=== PATIENT | male | born 1965 | race Caucasian/White ===

== ENCOUNTER 2019-07-30 11:03 | Inpatient (IN) | payer MEDICAID, OTHER ==
[~2019-07-30] VITALS: Ht 172.7 cm; Wt 81.2 kg
[~2019-07-30 11:03] MED LIST: CHOL100018 PO; MIRT-89 PO; OLAN10TA3 PO
[2019-07-30 12:00] LABS: EOSINOPHILS % (AUTO) 0.4 % (1.0-6.0); HEMATOCRIT 48.9 % (41-53); HEMOGLOBIN 16.8 g/dL (13.5-17.5); LYMPHOCYTES # (AUTO) 1.5 K/uL (1.0-4.8); LYMPHOCYTES % (AUTO) 26.2 % (22.0-44.0); MEAN CORPUSCULAR HEMOGLOBIN 32.3 pg (26.0-34.0); MEAN CORPUSCULAR HGB CONC 34.3 G/dL (31.0-37.0); MEAN CORPUSCULAR VOLUME 94 fL (80-100); MONOCYTES # (AUTO) 0.5 K/uL (0.1-1.0); MONOCYTES % (AUTO) 8.4 % (2.0-9.0); NEUTROPHILS # (AUTO) 3.8 K/uL (1.8-7.7); PLATELET COUNT (AUTO) 274 K/uL (150-450); RED BLOOD CELL COUNT(AUTO) 5.19 MIL/uL (4.50-5.90); RED CELL DISTRIBUTION WIDTH 11.9 % (11.5-14.5)
[2019-07-30 12:04] LABS: APPEARANCE,URINE CLEAR (CLEAR); GLUCOSE, URINE (UA) NEGATIVE (NEGATIVE); KETONES,URINE NEGATIVE (NEGATIVE); LEUKOCYTE ESTERASE ,URINE NEGATIVE (NEGATIVE); NITRATE,URINE NEGATIVE (NEGATIVE); OCCULT BLOOD,URINE NEGATIVE (NEGATIVE); PROTEIN,URINE NEGATIVE (NEGATIVE)
[2019-07-30 12:06] LABS: BILIRUBIN,URINE PRELIM. POSITIVE (NEGATIVE)
[2019-07-30 12:08] LABS: BACTERIA,URINE None Seen /HPF (None Seen); RBC,URINE 0-2 /HPF (0-2); WBC,URINE None Seen /HPF (0-5)
[2019-07-30 12:12] LABS: AMPHET/METH SCREEN,URINE NEGATIVE (NEGATIVE); BARBITURATE SCREEN, URINE NEGATIVE (NEGATIVE); BENZODIAZEPINES SCREEN,URINE NEGATIVE (NEGATIVE); CANNABINOID SCREEN,URINE NEGATIVE (NEGATIVE); COCAINE SCREEN,URINE NEGATIVE (NEGATIVE); METHADONE SCREEN, URINE NEGATIVE (NEGATIVE); OPIATE SCREEN,URINE NEGATIVE (NEGATIVE)
[2019-07-30 12:12] LABS: ANION GAP 11 mmol/L (8-16); CALCIUM, TOTAL 9.1 mg/dL (8.8-10.5); CARBON DIOXIDE 25 mmol/L (22-29); CHLORIDE 107 mmol/L (98-107); CREATININE 0.88 mg/dL (0.60-1.30); GLOMERULAR FILTR. RATE CALC > 60 mL/min (>60); GLUCOSE,RANDOM 97 mg/dL (70-110); POTASSIUM 4.4 mmol/L (3.5-5.1); SODIUM SERUM 143 mmol/L (136-145); UREA NITROGEN, BLOOD 7 mg/dL (7-18)
[2019-07-30 12:13] LABS: PHENCYCLIDINE SCREEN,URINE NEGATIVE (NEGATIVE)
[2019-07-30 12:20] LABS: ALANINE AMINOTRANSFERASE 38 U/L (12-78); ALBUMIN 3.8 g/dL (3.4-5.0); ALKALINE PHOSPHATASE 49 U/L (46-116); ASPARTATE AMINOTRANSFERASE 30 U/L (15-37); BILIRUBIN,TOTAL 1.1 mg/dL (0.1-1.0); LIPASE 101 U/L (73-393); TOTAL PROTEIN, SERUM 7.2 g/dL (6.4-8.2)
[2019-07-30] MEDS ORDERED: SODIUM PHOS/SODIUM BIPHOS 133 ML ENEMA PR ONE (12:45)
[2019-07-30] MEDS ORDERED: LORazepam 2 MG TABLET PO ONE (13:15)
[2019-07-30 17:00] VITALS: BP 112/87
[2019-07-31] MEDS ORDERED: LOPERAMIDE HCL 2 MG CAPSULE PO PRN (07:30)
[2019-07-31] MEDS ORDERED: DOCUSATE SODIUM 100 MG CAPSULE PO PRN (07:30)
[2019-07-31] MEDS ORDERED: CloNIDine HCL 0.1 MG TABLET PO PRN (07:30)
[2019-07-31] MEDS ORDERED: ALBUTEROL SULFATE HFA 90 MCG/PUFF 8 GM INHALER IH PRN (07:30)
[2019-07-31] MEDS ORDERED: GuaiFENesin/D-METHORPHAN [SUGAR-FREE] 200-20MG/10 ML SYRUP UDCUP PO PRN (07:30)
[2019-07-31] MEDS ORDERED: NICOTINE 14 MG/24 HOUR PATCH TD PRN (07:30)
[2019-07-31] MEDS ORDERED: ONDANSETRON HCL 4 MG TABLET PO PRN (07:30)
[2019-07-31] MEDS ORDERED: ACETAMINOPHEN 325 MG TABLET PO PRN (07:30)
[2019-07-31] MEDS ORDERED: PETROLATUM,WHITE 28 GM JELLY TP PRN (07:30)
[2019-07-31] MEDS: MAGNESIUM HYDROXIDE SUSPENSION 30 ML UDCUP PO PRN (09:50)
[2019-07-31] MEDS: ARIPiprazole 10 MG TABLET PO SCH (10:53)
[2019-07-31] MEDS ORDERED: BISACODYL 10 MG RECTAL RECTAL SUPPOSITORY PR PRN (11:15)
[2019-07-31] MEDS: BISACODYL 10 MG RECTAL RECTAL SUPPOSITORY PR SCH ×2 (12:23→17:00)
[2019-07-31 12:39] VITALS: BP 124/106
[2019-07-31 18:48] VITALS: BP 105/66
[2019-08-01 08:00] VITALS: BP 128/75
[2019-08-01] MEDS: BISACODYL 10 MG RECTAL RECTAL SUPPOSITORY PR SCH ×2 (09:00→16:19)
[2019-08-01] MEDS: ARIPiprazole 10 MG TABLET PO SCH (09:15)
[2019-08-01 11:01] VITALS: BP 126/72
[2019-08-01] MEDS: LORazepam 2 MG TABLET PO PRN (12:06)
[2019-08-01 17:40] VITALS: BP 105/57
[2019-08-02] MEDS: ARIPiprazole 10 MG TABLET PO SCH (08:56)
[2019-08-02] MEDS: BISACODYL 10 MG RECTAL RECTAL SUPPOSITORY PR SCH ×2 (08:56→16:48)
[2019-08-02 09:12] VITALS: BP 138/71
[2019-08-02 13:14] VITALS: BP 112/76
[2019-08-02] MEDS: ACETAMINOPHEN 325 MG TABLET PO PRN (13:14)
[2019-08-02] MEDS: MAG HYDROX/AL HYDROX/SIMETH ES 30 ML SUSPENSION UDCUP PO PRN (15:49)
[2019-08-02 16:52] VITALS: BP 114/88
[2019-08-03 08:00] VITALS: BP 129/77
[2019-08-03] MEDS: ARIPiprazole 10 MG TABLET PO SCH (08:41)
[2019-08-03] MEDS: BISACODYL 10 MG RECTAL RECTAL SUPPOSITORY PR SCH ×2 (08:54→17:00)
[2019-08-03] MEDS: MAGNESIUM HYDROXIDE SUSPENSION 30 ML UDCUP PO PRN (10:05)
[2019-08-03] MEDS: ACETAMINOPHEN 325 MG TABLET PO PRN ×2 (11:25→19:28)
[2019-08-03 16:55] VITALS: BP 115/73
[2019-08-03] MEDS: MAG HYDROX/AL HYDROX/SIMETH ES 30 ML SUSPENSION UDCUP PO PRN (17:09)
[2019-08-04 08:00] VITALS: BP 115/67
[2019-08-04] MEDS: LORazepam 2 MG TABLET PO PRN (08:29)
[2019-08-04] MEDS: ARIPiprazole 10 MG TABLET PO SCH (08:29)
[2019-08-04] MEDS: BISACODYL 10 MG RECTAL RECTAL SUPPOSITORY PR SCH ×2 (08:30→17:59)
[2019-08-04 17:13] VITALS: BP 100/53
[2019-08-05] MEDS: BISACODYL 10 MG RECTAL RECTAL SUPPOSITORY PR SCH ×2 (09:00→17:00)
[2019-08-05] MEDS: ARIPiprazole 15 MG TABLET PO SCH (09:21)
[2019-08-05 09:24] VITALS: BP 120/79
[2019-08-05] MEDS: ACETAMINOPHEN 325 MG TABLET PO PRN (09:24)
[2019-08-06] MEDS: LORazepam 2 MG TABLET PO PRN (08:26)
[2019-08-06] MEDS: ARIPiprazole 15 MG TABLET PO SCH (08:26)
[2019-08-06] MEDS: BISACODYL 10 MG RECTAL RECTAL SUPPOSITORY PR SCH ×2 (08:27→16:46)
[2019-08-06 10:03] VITALS: BP 125/76
[2019-08-06] MEDS: HALOPERIDOL 5 MG TABLET PO PRN (10:24)
[2019-08-06 16:45] VITALS: BP 106/67
[2019-08-07] MEDS: LORazepam 2 MG TABLET PO PRN (07:56)
[2019-08-07] MEDS: BISACODYL 10 MG RECTAL RECTAL SUPPOSITORY PR SCH (09:00)
[2019-08-07] MEDS: ARIPiprazole 15 MG TABLET PO SCH (09:13)
[2019-08-07 13:00] VITALS: BP 118/90
[2019-08-07 16:02] VITALS: BP 126/63
[2019-08-07 16:22] LABS: GLUCOMETER DEV NAME(LOC) 3E.C; GLUCOSE,POINT OF CARE 77 MG/DL (70-110)
[2019-08-07] MEDS: DOCUSATE SODIUM 100 MG CAPSULE PO SCH (16:36)
[2019-08-07] MEDS: IBUPROFEN 400 MG TABLET PO PRN (18:31)
[2019-08-07 20:00] VITALS: BP 102/60
[2019-08-07 20:24] VITALS: BP 126/63
[2019-08-07 21:36] VITALS: BP 101/64
[2019-08-08] MEDS: IBUPROFEN 400 MG TABLET PO PRN ×2 (08:10→17:58)
[2019-08-08] MEDS: ARIPiprazole 10 MG TABLET PO SCH (08:12)
[2019-08-08] MEDS: DOCUSATE SODIUM 100 MG CAPSULE PO SCH ×2 (08:14→16:34)
[2019-08-08 08:30] VITALS: BP 132/79
[2019-08-08] MEDS: LORazepam 2 MG TABLET PO PRN (08:34)
[2019-08-08] MEDS: ACETAMINOPHEN 325 MG TABLET PO PRN (08:37)
[2019-08-08] MEDS ORDERED: ARIPiprazole 15 MG TABLET PO SCH (09:00)
[2019-08-08 17:19] VITALS: BP 107/69
[2019-08-08 17:58] VITALS: BP 112/62
[2019-08-09 00:42] VITALS: BP 117/72
[2019-08-09 08:30] VITALS: BP 142/87
[2019-08-09] MEDS: LORazepam 2 MG TABLET PO PRN (08:35)
[2019-08-09] MEDS: ACETAMINOPHEN 325 MG TABLET PO PRN (08:35)
[2019-08-09] MEDS: DOCUSATE SODIUM 100 MG CAPSULE PO SCH ×2 (08:35→16:05)
[2019-08-09] MEDS: ARIPiprazole 10 MG TABLET PO SCH (08:36)
[2019-08-09] MEDS: TraMADol HCL 50 MG TABLET PO PRN ×2 (11:33→21:16)
[2019-08-09 16:10] VITALS: BP 120/70
[2019-08-09 21:11] VITALS: BP 124/72
[2019-08-10] MEDS: IBUPROFEN 400 MG TABLET PO PRN (05:07)
[2019-08-10 08:45] VITALS: BP 120/85
[2019-08-10] MEDS: ARIPiprazole 10 MG TABLET PO SCH (09:07)
[2019-08-10] MEDS: DOCUSATE SODIUM 100 MG CAPSULE PO SCH ×2 (09:07→17:07)
[2019-08-10] MEDS: TraMADol HCL 50 MG TABLET PO PRN (09:14)
[2019-08-10] MEDS: SERTRALINE HCL 50 MG TABLET PO SCH ×3 (13:30→13:43)
[2019-08-10 16:12] VITALS: BP 122/81
[2019-08-11 01:50] VITALS: BP 141/71
[2019-08-11] MEDS: TraMADol HCL 50 MG TABLET PO PRN ×2 (10:19→19:16)
[2019-08-11] MEDS: HALOPERIDOL 5 MG TABLET PO PRN ×2 (10:19→10:20)
[2019-08-11] MEDS: ARIPiprazole 10 MG TABLET PO SCH (10:19)
[2019-08-11] MEDS: SERTRALINE HCL 50 MG TABLET PO SCH (10:19)
[2019-08-11] MEDS: LORazepam 2 MG TABLET PO PRN (10:20)
[2019-08-11] MEDS: DOCUSATE SODIUM 100 MG CAPSULE PO SCH ×2 (10:20→16:37)
[2019-08-11 12:32] VITALS: BP 120/81
[2019-08-11 19:16] VITALS: BP 124/78
[2019-08-12] MEDS: DOCUSATE SODIUM 100 MG CAPSULE PO SCH ×2 (08:41→16:34)
[2019-08-12] MEDS: ARIPiprazole 10 MG TABLET PO SCH (08:41)
[2019-08-12] MEDS: SERTRALINE HCL 50 MG TABLET PO SCH ×2 (08:41→08:56)
[2019-08-12 09:35] VITALS: BP 154/85
[2019-08-12 10:37] VITALS: BP 132/78
[2019-08-12] MEDS: ACETAMINOPHEN 325 MG TABLET PO PRN (10:37)
[2019-08-12] MEDS ORDERED: SERTRALINE HCL 50 MG TABLET PO ONE (13:00)
[2019-08-12] MEDS: LORazepam 2 MG TABLET PO PRN (13:32)
[2019-08-12 16:25] VITALS: BP 108/72
[2019-08-13] MEDS: DOCUSATE SODIUM 100 MG CAPSULE PO SCH ×2 (08:11→16:26)
[2019-08-13] MEDS: ARIPiprazole 10 MG TABLET PO SCH (08:11)
[2019-08-13] MEDS: SERTRALINE HCL 50 MG TABLET PO SCH (08:11)
[2019-08-13] MEDS: MAGNESIUM HYDROXIDE SUSPENSION 30 ML UDCUP PO PRN (08:11)
[2019-08-13 09:00] VITALS: BP 108/70
[2019-08-13] MEDS: LORazepam 2 MG TABLET PO PRN (09:43)
[2019-08-13 16:21] VITALS: BP 112/77
[2019-08-13] MEDS: IBUPROFEN 400 MG TABLET PO PRN (16:26)
[2019-08-14] MEDS: SERTRALINE HCL 50 MG TABLET PO SCH (08:44)
[2019-08-14] MEDS: ARIPiprazole 10 MG TABLET PO SCH (08:45)
[2019-08-14] MEDS: DOCUSATE SODIUM 100 MG CAPSULE PO SCH ×2 (08:45→16:21)
[2019-08-14 08:46] VITALS: BP 141/73
[2019-08-14] MEDS: IBUPROFEN 400 MG TABLET PO PRN ×2 (09:46→20:40)
[2019-08-14] MEDS: LORazepam 2 MG TABLET PO PRN (11:19)
[2019-08-14 20:40] VITALS: BP 108/71
[2019-08-15 05:11] VITALS: BP 116/72
[2019-08-15] MEDS: TraMADol HCL 50 MG TABLET PO PRN ×2 (05:11→22:33)
[2019-08-15] MEDS: ARIPiprazole 10 MG TABLET PO SCH (09:22)
[2019-08-15] MEDS: LORazepam 2 MG TABLET PO PRN (09:22)
[2019-08-15] MEDS: DOCUSATE SODIUM 100 MG CAPSULE PO SCH ×2 (09:22→16:23)
[2019-08-15] MEDS: SERTRALINE HCL 50 MG TABLET PO SCH (09:22)
[2019-08-15 09:30] VITALS: BP 111/69
[2019-08-15 18:16] VITALS: BP 129/82
[2019-08-15 22:30] VITALS: BP 135/72
[2019-08-16 08:02] VITALS: BP 114/73
[2019-08-16] MEDS: ARIPiprazole 10 MG TABLET PO SCH (10:59)
[2019-08-16] MEDS: LORazepam 2 MG TABLET PO PRN (10:59)
[2019-08-16] MEDS: SERTRALINE HCL 50 MG TABLET PO SCH (10:59)
[2019-08-16] MEDS: DOCUSATE SODIUM 100 MG CAPSULE PO SCH ×2 (11:00→16:33)
[2019-08-16] MEDS: IBUPROFEN 400 MG TABLET PO PRN (11:38)
[2019-08-16 17:50] VITALS: BP 125/76
[2019-08-16] MEDS: TraMADol HCL 50 MG TABLET PO PRN (21:18)
[2019-08-17 09:00] VITALS: BP 122/69
[2019-08-17] MEDS: ARIPiprazole 10 MG TABLET PO SCH (09:07)
[2019-08-17] MEDS: SERTRALINE HCL 50 MG TABLET PO SCH (09:07)
[2019-08-17] MEDS: DOCUSATE SODIUM 100 MG CAPSULE PO SCH ×2 (09:07→16:20)
[2019-08-17] MEDS: TraMADol HCL 50 MG TABLET PO PRN (09:07)
[2019-08-17 16:16] VITALS: BP 101/70
[2019-08-17] MEDS: LORazepam 2 MG TABLET PO PRN (19:01)
[2019-08-18 04:40] VITALS: BP 100/55
[2019-08-18 08:13] VITALS: BP 111/60
[2019-08-18] MEDS: DOCUSATE SODIUM 100 MG CAPSULE PO SCH ×2 (08:36→16:23)
[2019-08-18] MEDS: SERTRALINE HCL 50 MG TABLET PO SCH (08:36)
[2019-08-18] MEDS: ARIPiprazole 10 MG TABLET PO SCH (08:37)
[2019-08-18] MEDS: TraMADol HCL 50 MG TABLET PO PRN (08:40)
[2019-08-18 16:09] VITALS: BP 104/71
[2019-08-18 17:56] VITALS: BP 128/80
[2019-08-18] MEDS: LORazepam 2 MG TABLET PO PRN (17:59)
[2019-08-19 02:17] VITALS: BP 112/80
[2019-08-19 08:09] VITALS: BP 111/75
[2019-08-19] MEDS: DOCUSATE SODIUM 100 MG CAPSULE PO SCH ×2 (08:53→17:10)
[2019-08-19] MEDS: ARIPiprazole 10 MG TABLET PO SCH (08:53)
[2019-08-19] MEDS: SERTRALINE HCL 50 MG TABLET PO SCH (08:53)
[2019-08-19] MEDS: LORazepam 2 MG TABLET PO PRN (10:04)
[2019-08-19] MEDS: TraMADol HCL 50 MG TABLET PO PRN (10:05)
[2019-08-19 16:11] VITALS: BP 117/75
[2019-08-20 08:00] VITALS: BP 113/71
[2019-08-20] MEDS: DOCUSATE SODIUM 100 MG CAPSULE PO SCH ×2 (08:39→16:19)
[2019-08-20] MEDS: SERTRALINE HCL 50 MG TABLET PO SCH (08:39)
[2019-08-20] MEDS: ARIPiprazole 10 MG TABLET PO SCH (08:39)
[2019-08-20] MEDS: LORazepam 2 MG TABLET PO PRN (10:14)
[2019-08-20 18:25] VITALS: BP 112/73
[2019-08-20] MEDS: TraMADol HCL 50 MG TABLET PO PRN (19:17)
[2019-08-20 19:18] VITALS: BP 110/78
[2019-08-21 08:00] VITALS: BP 106/74
[2019-08-21] MEDS: ARIPiprazole 10 MG TABLET PO SCH (08:33)
[2019-08-21] MEDS: DOCUSATE SODIUM 100 MG CAPSULE PO SCH ×2 (08:34→15:58)
[2019-08-21] MEDS: SERTRALINE HCL 50 MG TABLET PO SCH (08:34)
[2019-08-21 09:25] VITALS: BP 106/74
[2019-08-21] MEDS: TraMADol HCL 50 MG TABLET PO PRN (09:29)
[2019-08-21] MEDS: LORazepam 2 MG TABLET PO PRN (15:58)
[2019-08-21 18:45] VITALS: BP 107/73
[2019-08-22 08:08] VITALS: BP 106/54
[2019-08-22] MEDS: TraMADol HCL 50 MG TABLET PO PRN (08:10)
[2019-08-22] MEDS: DOCUSATE SODIUM 100 MG CAPSULE PO SCH ×2 (08:10→16:18)
[2019-08-22] MEDS: SERTRALINE HCL 50 MG TABLET PO SCH (08:10)
[2019-08-22] MEDS: ARIPiprazole 10 MG TABLET PO SCH (08:10)
[2019-08-22] MEDS: LORazepam 2 MG TABLET PO PRN (12:20)
[2019-08-22 18:10] VITALS: BP 121/82
[2019-08-23 08:21] VITALS: BP 110/74
[2019-08-23] MEDS: ARIPiprazole 10 MG TABLET PO SCH (08:23)
[2019-08-23] MEDS: SERTRALINE HCL 50 MG TABLET PO SCH (08:23)
[2019-08-23] MEDS: DOCUSATE SODIUM 100 MG CAPSULE PO SCH ×2 (08:23→19:27)
[2019-08-23] MEDS: LORazepam 2 MG TABLET PO PRN (12:30)
[2019-08-23 16:06] VITALS: BP 114/73
[2019-08-23] MEDS ORDERED: CLOTRIMAZOLE 1% 15 GM CREAM TP PRN (16:15)
[2019-08-24 08:20] VITALS: BP 108/62
[2019-08-24] MEDS: ARIPiprazole 10 MG TABLET PO SCH (10:03)
[2019-08-24] MEDS: DOCUSATE SODIUM 100 MG CAPSULE PO SCH ×2 (10:03→16:41)
[2019-08-24] MEDS: SERTRALINE HCL 50 MG TABLET PO SCH (10:03)
[2019-08-24] MEDS: LORazepam 2 MG TABLET PO PRN (15:26)
[2019-08-24 21:17] VITALS: BP 119/69
[2019-08-25 07:17] VITALS: BP 118/76
[2019-08-25 08:42] VITALS: BP 140/88
[2019-08-25] MEDS: ARIPiprazole 10 MG TABLET PO SCH (10:29)
[2019-08-25] MEDS: SERTRALINE HCL 50 MG TABLET PO SCH (10:29)
[2019-08-25] MEDS: DOCUSATE SODIUM 100 MG CAPSULE PO SCH ×2 (10:30→17:37)
[2019-08-25] MEDS: LORazepam 2 MG TABLET PO PRN (11:22)
[2019-08-25 18:00] VITALS: BP 110/68
[2019-08-26] MEDS: ARIPiprazole 10 MG TABLET PO SCH (08:41)
[2019-08-26] MEDS: SERTRALINE HCL 50 MG TABLET PO SCH (08:41)
[2019-08-26] MEDS: DOCUSATE SODIUM 100 MG CAPSULE PO SCH ×2 (08:41→16:08)
[2019-08-26] MEDS: LORazepam 2 MG TABLET PO PRN (10:10)
[2019-08-26 13:21] VITALS: BP 120/83
[2019-08-26 16:01] VITALS: BP 106/69
[2019-08-26 21:29] VITALS: BP 115/73
[2019-08-26] MEDS: TraMADol HCL 50 MG TABLET PO PRN (21:36)
[2019-08-27] MEDS: DOCUSATE SODIUM 100 MG CAPSULE PO SCH ×2 (08:10→16:39)
[2019-08-27] MEDS: ARIPiprazole 10 MG TABLET PO SCH (08:10)
[2019-08-27] MEDS: SERTRALINE HCL 50 MG TABLET PO SCH (08:10)
[2019-08-27 08:12] VITALS: BP 116/69
[2019-08-27 17:00] VITALS: BP 117/81
[2019-08-28 03:40] VITALS: BP 122/64
[2019-08-28] MEDS: ZOLPIDEM TARTRATE 10 MG TABLET PO PRN (03:41)
[2019-08-28 08:25] VITALS: BP 122/84
[2019-08-28] MEDS: SERTRALINE HCL 50 MG TABLET PO SCH (09:04)
[2019-08-28] MEDS: ARIPiprazole 10 MG TABLET PO SCH (09:04)
[2019-08-28] MEDS: DOCUSATE SODIUM 100 MG CAPSULE PO SCH ×2 (09:05→16:15)
[2019-08-28] MEDS: LORazepam 2 MG TABLET PO PRN (11:50)
[2019-08-28 16:11] VITALS: BP 108/64
[2019-08-29 08:00] VITALS: BP 102/61
[2019-08-29] MEDS: SERTRALINE HCL 50 MG TABLET PO SCH (09:13)
[2019-08-29] MEDS: ARIPiprazole 10 MG TABLET PO SCH (09:13)
[2019-08-29] MEDS: DOCUSATE SODIUM 100 MG CAPSULE PO SCH ×2 (09:13→16:03)
[2019-08-29] MEDS: LORazepam 2 MG TABLET PO PRN (11:36)
[2019-08-29 16:47] VITALS: BP 107/67
[2019-08-30 08:00] VITALS: BP 110/77
[2019-08-30] MEDS: ARIPiprazole 10 MG TABLET PO SCH (08:54)
[2019-08-30] MEDS: SERTRALINE HCL 50 MG TABLET PO SCH (08:54)
[2019-08-30] MEDS: DOCUSATE SODIUM 100 MG CAPSULE PO SCH ×2 (08:55→16:04)
[2019-08-30] MEDS: LORazepam 2 MG TABLET PO PRN (10:53)
[2019-08-30 17:51] VITALS: BP 117/77
[2019-08-31 08:01] VITALS: BP 119/83
[2019-08-31] MEDS: ARIPiprazole 10 MG TABLET PO SCH (08:26)
[2019-08-31] MEDS: DOCUSATE SODIUM 100 MG CAPSULE PO SCH ×2 (08:26→16:28)
[2019-08-31] MEDS: SERTRALINE HCL 50 MG TABLET PO SCH (08:26)
[2019-08-31] MEDS: LORazepam 2 MG TABLET PO PRN (10:54)
[2019-08-31 16:20] VITALS: BP 112/76
[2019-09-01 08:07] VITALS: BP 101/71
[2019-09-01] MEDS: DOCUSATE SODIUM 100 MG CAPSULE PO SCH ×2 (08:17→16:19)
[2019-09-01] MEDS: ARIPiprazole 10 MG TABLET PO SCH (08:17)
[2019-09-01] MEDS: SERTRALINE HCL 50 MG TABLET PO SCH (08:17)
[2019-09-01] MEDS: LORazepam 2 MG TABLET PO PRN (10:48)
[2019-09-01 16:06] VITALS: BP 114/72
[2019-09-01 16:10] VITALS: BP 114/72
[2019-09-01] MEDS: ZOLPIDEM TARTRATE 10 MG TABLET PO PRN (21:08)
[2019-09-02 08:29] VITALS: BP 135/93
[2019-09-02] MEDS: SERTRALINE HCL 50 MG TABLET PO SCH (08:33)
[2019-09-02] MEDS: DOCUSATE SODIUM 100 MG CAPSULE PO SCH ×2 (08:33→16:24)
[2019-09-02] MEDS: ARIPiprazole 10 MG TABLET PO SCH (08:33)
[2019-09-02] MEDS: LORazepam 2 MG TABLET PO PRN (11:07)
[2019-09-02 16:00] VITALS: BP 106/73
[2019-09-02] MEDS: ZOLPIDEM TARTRATE 10 MG TABLET PO PRN (20:27)
[2019-09-03 08:08] VITALS: BP 112/70
[2019-09-03] MEDS ORDERED: ARIP10TA8 PO (08:30)
[2019-09-03] MEDS: ARIPiprazole 10 MG TABLET PO SCH (08:30)
[2019-09-03] MEDS: SERTRALINE HCL 50 MG TABLET PO SCH (08:30)
[2019-09-03] MEDS: DOCUSATE SODIUM 100 MG CAPSULE PO SCH (08:30)
[2019-09-03] MEDS ORDERED: SERT50TA12 PO (08:31)
== END 2019-09-03 09:50 | disposition home or self-care (01) | DRG 885 ==
LOC: EMS 11:08 → 3EI 15:30 → 3EC 08-06 11:20
DX: F20.0 Paranoid schizophrenia (principal); K59.00 Constipation, unspecified; M19.90 Unspecified osteoarthritis, unspecified site; F41.9 Anxiety disorder, unspecified; F10.10 Alcohol abuse, uncomplicated; Z59.0 Homelessness; Z79.899 Other long term (current) drug therapy
CPT/HCPCS: 70470; 72170; 74018; 97110; 97112; 97116; 97166; 97530; 97535; G0480; Q0162

== ENCOUNTER 2021-05-26 12:23 | Emergency (ER) | payer MEDICAID, OTHER ==
[~2021-05-26] VITALS: Ht 167.6 cm; Wt 65.9 kg
[~2021-05-26 12:23] MED LIST changes: +ARIP10TA38 PO; -CHOL100018 PO; -MIRT-89 PO; -OLAN10TA3 PO; +SERT-158 PO
[2021-05-26 16:30] VITALS: BP 133/3
== END 2021-05-26 16:58 | disposition home or self-care (01) ==
LOC: EMS 12:29
DX: S40.011A Contusion of right shoulder, initial encounter (principal); S69.91XA Unspecified injury of right wrist, hand and finger(s), initial encounter; F20.9 Schizophrenia, unspecified; F32.9 Major depressive disorder, single episode, unspecified; Z79.899 Other long term (current) drug therapy; Y04.0XXA Assault by unarmed brawl or fight, initial encounter; Y93.89 Activity, other specified; Y92.89 Other specified places as the place of occurrence of the external cause; Y99.8 Other external cause status
CPT/HCPCS: 99284; 73030-TC; 73130-TC; Z7502

== ENCOUNTER 2021-12-07 16:22 | Inpatient (IN) | payer MEDICAID, OTHER ==
[~2021-12-07] VITALS: Ht 172.7 cm; Wt 93.0 kg
[2021-12-07] MEDS ORDERED: HALOPERIDOL LACTATE 5 MG/ML VIAL IM ONE (17:15)
[2021-12-07] MEDS ORDERED: LORazepam 2 MG/ML VIAL IM ONE (17:15)
[2021-12-07] MEDS ORDERED: DiphenhydrAMINE HCL 50 MG/ML VIAL IM ONE (17:15)
[2021-12-07 18:37] LABS: COVID AG,FIA SOURCE NASOPHARYNGEAL
[2021-12-07 18:39] LABS: BASOPHILS % (AUTO) 0.7 % (0.0-2.0); EOSINOPHILS % (AUTO) 0.7 % (1.0-6.0); HEMATOCRIT 45.7 % (41-53); HEMOGLOBIN 15.6 g/dL (13.5-17.5); LYMPHOCYTES # (AUTO) 2.2 K/uL (1.0-4.8); LYMPHOCYTES % (AUTO) 29.6 % (22.0-44.0); MEAN CORPUSCULAR HEMOGLOBIN 32.1 pg (26.0-34.0); MEAN CORPUSCULAR HGB CONC 34.1 G/dL (31.0-37.0); MEAN CORPUSCULAR VOLUME 94 fL (80-100); MONOCYTES # (AUTO) 0.5 K/uL (0.1-1.0); MONOCYTES % (AUTO) 6.9 % (2.0-9.0); NEUTROPHILS # (AUTO) 4.6 K/uL (1.8-7.7); NEUTROPHILS % (AUTO) 62.1 % (40.0-70.0); PLATELET COUNT (AUTO) 276 K/uL (150-450); RED BLOOD CELL COUNT(AUTO) 4.86 MIL/uL (4.50-5.90); RED CELL DISTRIBUTION WIDTH 14.7 % (11.5-14.5)
[2021-12-07 18:48] LABS: ANION GAP 17 mmol/L (8-16); CALCIUM, TOTAL 8.7 mg/dL (8.8-10.5); CARBON DIOXIDE 22 mmol/L (22-29); CHLORIDE 103 mmol/L (98-107); CREATININE 0.69 mg/dL (0.60-1.30); GLUCOSE,RANDOM 76 mg/dL (70-110); POTASSIUM 3.6 mmol/L (3.5-5.1); SODIUM SERUM 142 mmol/L (136-145); UREA NITROGEN, BLOOD 9 mg/dL (7-18)
[2021-12-07 18:49] LABS: GLOMERULAR FILTR. RATE CALC > 60 mL/min (>60)
[2021-12-07 18:54] LABS: ALANINE AMINOTRANSFERASE 32 U/L (12-78); ALBUMIN 3.6 g/dL (3.4-5.0); ALKALINE PHOSPHATASE 60 U/L (46-116); ASPARTATE AMINOTRANSFERASE 36 U/L (15-37); BILIRUBIN,TOTAL 1.4 mg/dL (0.1-1.0)
[2021-12-07] MEDS: OLANZapine 5 MG RAPDIS TABLET PO ONE ×2 (20:33→20:37)
[2021-12-07] MEDS ORDERED: ChlordiazePOXIDE HCL 25 MG CAPSULE PO PRN (21:45)
[2021-12-07] MEDS ORDERED: HALOPERIDOL 5 MG TABLET PO PRN (21:45)
[2021-12-07] MEDS ORDERED: LORazepam 2 MG TABLET PO PRN (21:45)
[2021-12-07] MEDS ORDERED: ZOLPIDEM TARTRATE 10 MG TABLET PO PRN (21:45)
[2021-12-08 02:30] VITALS: BP 130/81
[2021-12-08 03:34] VITALS: BP 126/72
[2021-12-08 04:30] VITALS: BP 118/70
[2021-12-08 05:30] VITALS: BP 120/81
[2021-12-08] MEDS ORDERED: ONDANSETRON HCL 4 MG TABLET PO PRN (07:00)
[2021-12-08] MEDS ORDERED: ChlordiazePOXIDE HCL 25 MG CAPSULE PO PRN (07:00)
[2021-12-08] MEDS ORDERED: IBUPROFEN 400 MG TABLET PO PRN (07:00)
[2021-12-08] MEDS ORDERED: PETROLATUM,WHITE 28 GM JELLY TP PRN (07:00)
[2021-12-08] MEDS ORDERED: CloNIDine HCL 0.1 MG TABLET PO PRN (07:00)
[2021-12-08] MEDS ORDERED: ACETAMINOPHEN 325 MG TABLET PO PRN (07:00)
[2021-12-08] MEDS ORDERED: MAGNESIUM HYDROXIDE SUSPENSION 30 ML UDCUP PO PRN (07:00)
[2021-12-08] MEDS ORDERED: LOPERAMIDE HCL 2 MG CAPSULE PO PRN (07:00)
[2021-12-08] MEDS ORDERED: NICOTINE 14 MG/24 HOUR PATCH TD PRN (07:00)
[2021-12-08] MEDS ORDERED: GuaiFENesin/D-METHORPHAN [SUGAR-FREE] 200-20MG/10 ML SYRUP UDCUP PO PRN (07:00)
[2021-12-08] MEDS ORDERED: ALBUTEROL SULFATE HFA 90 MCG/PUFF 8 GM INHALER IH PRN (07:00)
[2021-12-08] MEDS ORDERED: DOCUSATE SODIUM 100 MG CAPSULE PO PRN (07:00)
[2021-12-08 08:16] VITALS: BP 126/78
[2021-12-08] MEDS: ChlordiazePOXIDE HCL 25 MG CAPSULE PO SCH ×4 (08:30→20:27)
[2021-12-08] MEDS: ARIPiprazole 10 MG TABLET PO SCH (11:03)
[2021-12-08] MEDS: SERTRALINE HCL 50 MG TABLET PO SCH (11:04)
[2021-12-08 20:24] VITALS: BP 115/75
[2021-12-09] VITALS (7 sets, daily range): BP systolic 118–134; BP diastolic 72–92
[2021-12-09] MEDS: SERTRALINE HCL 50 MG TABLET PO SCH (08:32)
[2021-12-09] MEDS: ARIPiprazole 10 MG TABLET PO SCH (08:32)
[2021-12-09] MEDS: ChlordiazePOXIDE HCL 25 MG CAPSULE PO SCH ×4 (08:33→20:33)
[2021-12-10] VITALS (8 sets, daily range): BP systolic 120–130; BP diastolic 77–88
[2021-12-10] MEDS: MAG HYDROX/AL HYDROX/SIMETH ES 30 ML SUSPENSION UDCUP PO PRN ×2 (00:42→19:19)
[2021-12-10] MEDS ORDERED: ChlordiazePOXIDE HCL 10 MG CAPSULE PO PRN (07:00)
[2021-12-10] MEDS: ChlordiazePOXIDE HCL 10 MG CAPSULE PO SCH ×4 (08:15→20:30)
[2021-12-10] MEDS: SERTRALINE HCL 50 MG TABLET PO SCH (08:16)
[2021-12-10] MEDS: ARIPiprazole 10 MG TABLET PO SCH (08:16)
[2021-12-11] MEDS ORDERED: ChlordiazePOXIDE HCL 10 MG CAPSULE PO PRN (07:00)
[2021-12-11] MEDS: SERTRALINE HCL 50 MG TABLET PO SCH (08:20)
[2021-12-11] MEDS: ARIPiprazole 10 MG TABLET PO SCH (08:20)
[2021-12-11 13:32] VITALS: BP 117/68
[2021-12-11] MEDS: NICOTINE POLACRILEX 2 MG LOZENGE PO PRN (18:12)
[2021-12-11 20:20] VITALS: BP 128/72
[2021-12-12 02:08] VITALS: BP 121/75
[2021-12-12 08:33] VITALS: BP 130/94
[2021-12-12] MEDS: ARIPiprazole 10 MG TABLET PO SCH (08:39)
[2021-12-12] MEDS: SERTRALINE HCL 50 MG TABLET PO SCH (08:39)
[2021-12-12 14:59] VITALS: BP 130/84
[2021-12-12] MEDS: NICOTINE POLACRILEX 2 MG LOZENGE PO PRN (16:26)
[2021-12-12] MEDS: HydrOXYzine PAMOATE 25 MG CAPSULE PO PRN ×2 (16:38→20:57)
[2021-12-12 20:10] VITALS: BP 130/84
[2021-12-13] MEDS: NICOTINE POLACRILEX 2 MG LOZENGE PO PRN (06:36)
[2021-12-13 08:08] VITALS: BP 119/78
[2021-12-13] MEDS: SERTRALINE HCL 50 MG TABLET PO SCH (08:12)
[2021-12-13] MEDS: HydrOXYzine PAMOATE 25 MG CAPSULE PO PRN (08:12)
[2021-12-13] MEDS: ARIPiprazole 10 MG TABLET PO SCH (08:12)
[2021-12-13] MEDS ORDERED: ARIP10TA38 PO (11:51)
[2021-12-13] MEDS ORDERED: SERT-439 PO (11:51)
== END 2021-12-13 12:30 | disposition home or self-care (01) | DRG 750 ==
LOC: EMS 16:28 → B3A 12-08 00:31
PROVIDERS: ADMIT Psychiatry & Neurology Child & Adolescent Psychiatry; ATTEND Psychiatry & Neurology Child & Adolescent Psychiatry
DX: F25.1 Schizoaffective disorder, depressive type (principal); K74.60 Unspecified cirrhosis of liver; E66.9 Obesity, unspecified; F10.229 Alcohol dependence with intoxication, unspecified; F32.A Depression, unspecified; F19.10 Other psychoactive substance abuse, uncomplicated; Z20.822 Contact with and (suspected) exposure to COVID-19; K76.9 Liver disease, unspecified; M19.90 Unspecified osteoarthritis, unspecified site; Y90.8 Blood alcohol level of 240 mg/100 ml or more; Z78.1 Physical restraint status; Z59.00 Homelessness unspecified; Z68.31 Body mass index [BMI] 31.0-31.9, adult; Z79.899 Other long term (current) drug therapy
CPT/HCPCS: 80053; 85025; 99291; G0480; J1200; J1630; J2060; Q9967

== ENCOUNTER 2022-02-09 16:27 | Emergency (ER) | payer MEDICAID, OTHER ==
[~2022-02-09] VITALS: Ht 172.7 cm; Wt 93.0 kg
[~2022-02-09 16:27] MED LIST changes: -SERT-158 PO; +SERT-439 PO
[2022-02-09 17:57] VITALS: BP 112/69
[2022-02-09 18:02] LABS: BASOPHILS % (AUTO) 0.6 % (0.0-2.0); EOSINOPHILS % (AUTO) 0.6 % (1.0-6.0); HEMATOCRIT 38.5 % (41-53); LYMPHOCYTES % (AUTO) 18.7 % (22.0-44.0); MEAN CORPUSCULAR HEMOGLOBIN 33.5 pg (26.0-34.0); MEAN CORPUSCULAR HGB CONC 33.9 G/dL (31.0-37.0); MEAN CORPUSCULAR VOLUME 99 fL (80-100); MONOCYTES # (AUTO) 0.6 K/uL (0.1-1.0); MONOCYTES % (AUTO) 11.2 % (2.0-9.0); NEUTROPHILS # (AUTO) 3.8 K/uL (1.8-7.7); NEUTROPHILS % (AUTO) 68.9 % (40.0-70.0); PLATELET COUNT (AUTO) 337 K/uL (150-450); RED BLOOD CELL COUNT(AUTO) 3.89 MIL/uL (4.50-5.90); RED CELL DISTRIBUTION WIDTH 13.8 % (11.5-14.5)
[2022-02-09 18:17] LABS: ALANINE AMINOTRANSFERASE 33 U/L (12-78); ALBUMIN 2.9 g/dL (3.4-5.0); ALKALINE PHOSPHATASE 53 U/L (46-116); ANION GAP 10 mmol/L (8-16); ASPARTATE AMINOTRANSFERASE 37 U/L (15-37); BILIRUBIN,TOTAL 0.4 mg/dL (0.1-1.0); CALCIUM, TOTAL 8.6 mg/dL (8.8-10.5); CARBON DIOXIDE 24 mmol/L (22-29); CHLORIDE 105 mmol/L (98-107); CREATININE 0.54 mg/dL (0.60-1.30); GLUCOSE,RANDOM 95 mg/dL (70-110); SODIUM SERUM 139 mmol/L (136-145); TOTAL PROTEIN, SERUM 7.3 g/dL (6.4-8.2); UREA NITROGEN, BLOOD 4 mg/dL (7-18)
[2022-02-09 18:20] LABS: GLOMERULAR FILTR. RATE CALC > 60 mL/min (>60); POTASSIUM 2.8 mmol/L (3.5-5.1)
[2022-02-09] MEDS ORDERED: PERTUSS(ACELL),DIPH,TET VAC/PF 0.5 ML SYRINGE IM. ONE (19:00)
[2022-02-09 19:21] LABS: AMPHET/METH SCREEN,URINE POSITIVE (NEGATIVE); BARBITURATE SCREEN, URINE NEGATIVE (NEGATIVE); BENZODIAZEPINES SCREEN,URINE NEGATIVE (NEGATIVE); CANNABINOID SCREEN,URINE POSITIVE (NEGATIVE); COCAINE SCREEN,URINE NEGATIVE (NEGATIVE); METHADONE SCREEN, URINE NEGATIVE (NEGATIVE); OPIATE SCREEN,URINE NEGATIVE (NEGATIVE)
[2022-02-09 19:22] LABS: PHENCYCLIDINE SCREEN,URINE NEGATIVE (NEGATIVE)
== END 2022-02-09 20:05 | disposition home or self-care (01) ==
LOC: EMS 16:43
DX: F20.9 Schizophrenia, unspecified (principal); S80.812A Abrasion, left lower leg, initial encounter; M19.90 Unspecified osteoarthritis, unspecified site; F32.9 Major depressive disorder, single episode, unspecified; F10.90 Alcohol use, unspecified, uncomplicated; K74.60 Unspecified cirrhosis of liver; Z59.00 Homelessness unspecified; W26.0XXA Contact with knife, initial encounter; Y93.89 Activity, other specified; Y92.89 Other specified places as the place of occurrence of the external cause; Y99.8 Other external cause status; Z98.890 Other specified postprocedural states
CPT/HCPCS: 99285; 80053; 85025; 36415; 90715; 90471; 80307; G0480

== ENCOUNTER 2022-07-07 17:37 | Inpatient (IN) | payer OTHER ==
[~2022-07-07] VITALS: Ht 170.2 cm; Wt 90.9 kg
[2022-07-07] MEDS ORDERED: VANCOMYCIN HCL 1.25 GM in DEXTROSE 5%-WATER 250 ML IV ONE (18:15)
[2022-07-07] MEDS ORDERED: DiphenhydrAMINE HCL 50 MG/ML VIAL IVP ONE (18:15)
[2022-07-07] MEDS ORDERED: DEXTROSE 5%-WATER 250 ML IV ONE (18:21)
[2022-07-07 18:29] LABS: COVID AG,FIA SOURCE NASOPHARYNGEAL
[2022-07-07 18:35] LABS: HEMATOCRIT 45.5 % (41-53); HEMOGLOBIN 15.5 g/dL (13.5-17.5); LYMPHOCYTES # (AUTO) 1.9 K/uL (1.0-4.8); LYMPHOCYTES % (AUTO) 27.4 % (22.0-44.0); MEAN CORPUSCULAR HEMOGLOBIN 32.8 pg (26.0-34.0); MEAN CORPUSCULAR VOLUME 97 fL (80-100); MONOCYTES # (AUTO) 0.8 K/uL (0.1-1.0); MONOCYTES % (AUTO) 10.9 % (2.0-9.0); NEUTROPHILS % (AUTO) 56.7 % (40.0-70.0); PLATELET COUNT (AUTO) 421 K/uL (150-450); RED BLOOD CELL COUNT(AUTO) 4.71 MIL/uL (4.50-5.90); RED CELL DISTRIBUTION WIDTH 13.9 % (11.5-14.5)
[2022-07-07] MEDS ORDERED: SODIUM CHLORIDE 0.9% 1,000 ML IV ONE ×3 (19:00→21:30)
[2022-07-07 19:04] LABS: ANION GAP 9 mmol/L (8-16); CARBON DIOXIDE 28 mmol/L (22-29); CHLORIDE 99 mmol/L (98-107); CREATININE 0.96 mg/dL (0.60-1.30); GLOMERULAR FILTR. RATE CALC > 60 mL/min (>60); GLUCOSE,RANDOM 77 mg/dL (70-110); POTASSIUM 3.6 mmol/L (3.5-5.1); SODIUM SERUM 136 mmol/L (136-145); UREA NITROGEN, BLOOD 9 mg/dL (7-18)
[2022-07-07 19:10] LABS: ALANINE AMINOTRANSFERASE 48 U/L (12-78); ALBUMIN 3.7 g/dL (3.4-5.0); ALKALINE PHOSPHATASE 75 U/L (46-116); ASPARTATE AMINOTRANSFERASE 46 U/L (15-37); BILIRUBIN,TOTAL 0.5 mg/dL (0.1-1.0); TOTAL PROTEIN, SERUM 7.2 g/dL (6.4-8.2)
[2022-07-07 19:15] LABS: LACTIC ACID 4.4 mmol/L (0.4-2.0)
[2022-07-07] MEDS ORDERED: IOHEXOL 350 MG/ML 100 ML VIAL ONE (19:42)
[2022-07-07] MEDS ORDERED: SODIUM CHLORIDE 0.9% 100 ML ONE (19:42)
[2022-07-07] MEDS ORDERED: ACETAMINOPHEN 325 MG TABLET PO PRN ×2 (19:45→21:30)
[2022-07-07] MEDS ORDERED: ONDANSETRON HCL 4 MG/2 ML VIAL IVP PRN ×2 (19:45→21:30)
[2022-07-07] MEDS ORDERED: 0.9% SODIUM CHLORIDE 10 ML SYRINGE IVP PRN (19:45)
[2022-07-07] MEDS ORDERED: HYDROCODONE/ACETAMINOPHEN 5-325 MG TABLET PO PRN (21:30)
[2022-07-07] MEDS ORDERED: MORPHINE SULFATE 2 MG/ML SYRINGE IVP PRN (21:30)
[2022-07-07] MEDS ORDERED: ZOLPIDEM TARTRATE 5 MG TABLET PO PRN (21:30)
[2022-07-07] MEDS ORDERED: MAGNESIUM HYDROXIDE SUSPENSION 30 ML UDCUP PO PRN (21:30)
[2022-07-07] MEDS ORDERED: BISACODYL 10 MG RECTAL RECTAL SUPPOSITORY PR PRN (21:30)
[2022-07-07 22:03] LABS: AMPHET/METH SCREEN,URINE NEGATIVE (NEGATIVE); BARBITURATE SCREEN, URINE NEGATIVE (NEGATIVE); BENZODIAZEPINES SCREEN,URINE NEGATIVE (NEGATIVE); CANNABINOID SCREEN,URINE NEGATIVE (NEGATIVE); COCAINE SCREEN,URINE NEGATIVE (NEGATIVE); METHADONE SCREEN, URINE NEGATIVE (NEGATIVE); OPIATE SCREEN,URINE NEGATIVE (NEGATIVE); PHENCYCLIDINE SCREEN,URINE NEGATIVE (NEGATIVE)
[2022-07-07] MEDS: HEPARIN SODIUM,PORCINE 5,000 UNITS/ML VIAL SQ SCH (23:54)
[2022-07-08 05:26] LABS: BASOPHILS % (AUTO) 1.1 % (0.0-2.0); EOSINOPHILS % (AUTO) 7.5 % (1.0-6.0); HEMATOCRIT 43.6 % (41-53); HEMOGLOBIN 15.1 g/dL (13.5-17.5); LYMPHOCYTES # (AUTO) 1.5 K/uL (1.0-4.8); LYMPHOCYTES % (AUTO) 24.8 % (22.0-44.0); MEAN CORPUSCULAR HEMOGLOBIN 33.6 pg (26.0-34.0); MEAN CORPUSCULAR HGB CONC 34.7 G/dL (31.0-37.0); MEAN CORPUSCULAR VOLUME 97 fL (80-100); MONOCYTES # (AUTO) 0.7 K/uL (0.1-1.0); MONOCYTES % (AUTO) 11.7 % (2.0-9.0); NEUTROPHILS # (AUTO) 3.3 K/uL (1.8-7.7); NEUTROPHILS % (AUTO) 54.9 % (40.0-70.0); PLATELET COUNT (AUTO) 386 K/uL (150-450); RED CELL DISTRIBUTION WIDTH 14.1 % (11.5-14.5)
[2022-07-08 05:35] LABS: ALANINE AMINOTRANSFERASE 37 U/L (12-78); ALBUMIN 3.1 g/dL (3.4-5.0); ALKALINE PHOSPHATASE 65 U/L (46-116); ANION GAP 6 mmol/L (8-16); ASPARTATE AMINOTRANSFERASE 36 U/L (15-37); BILIRUBIN,TOTAL 0.6 mg/dL (0.1-1.0); CALCIUM, TOTAL 8.3 mg/dL (8.8-10.5); CARBON DIOXIDE 28 mmol/L (22-29); CHLORIDE 108 mmol/L (98-107); CREATININE 0.88 mg/dL (0.60-1.30); GLOMERULAR FILTR. RATE CALC > 60 mL/min (>60); GLUCOSE,RANDOM 90 mg/dL (70-110); POTASSIUM 3.9 mmol/L (3.5-5.1); SODIUM SERUM 142 mmol/L (136-145); TOTAL PROTEIN, SERUM 6.5 g/dL (6.4-8.2); UREA NITROGEN, BLOOD 10 mg/dL (7-18)
[2022-07-08] MEDS: VANCOMYCIN 1GM/WATER(PEG/NADA) 200 ML IV SCH ×3 (07:38→23:26)
[2022-07-08] MEDS ORDERED: VANCOMYCIN HCL 1.25 GM in DEXTROSE 5%-WATER 250 ML IV SCH (08:00)
[2022-07-08] MEDS: HEPARIN SODIUM,PORCINE 5,000 UNITS/ML VIAL SQ SCH ×3 (09:32→23:26)
[2022-07-08] MEDS: PANTOPRAZOLE SODIUM 40 MG DR TABLET PO SCH (09:38)
[2022-07-08] MEDS: DOCUSATE SODIUM 100 MG CAPSULE PO SCH ×2 (09:38→19:52)
[2022-07-08] MEDS: ARIPiprazole 10 MG TABLET PO SCH (09:39)
[2022-07-08] MEDS: SERTRALINE HCL 50 MG TABLET PO SCH (09:39)
[2022-07-08 16:30] VITALS: BP 133/85
[2022-07-08 20:13] VITALS: BP 132/93
[2022-07-09] MEDS ORDERED: INFLUENZA VIRUS VACCINE QVS 2022-23 (6MO+)/PF 60 MCG/0.5 ML SYRINGE IM. ONE (02:45)
[2022-07-09] MEDS: LORazepam 2 MG/ML VIAL IVP PRN ×2 (03:32→08:47)
[2022-07-09 04:24] VITALS: BP 136/86
[2022-07-09 08:10] LABS: BASOPHILS % (AUTO) 0.9 % (0.0-2.0); EOSINOPHILS % (AUTO) 4.6 % (1.0-6.0); HEMATOCRIT 41.3 % (41-53); HEMOGLOBIN 14.1 g/dL (13.5-17.5); LYMPHOCYTES # (AUTO) 1.3 K/uL (1.0-4.8); LYMPHOCYTES % (AUTO) 24.9 % (22.0-44.0); MEAN CORPUSCULAR HEMOGLOBIN 33.2 pg (26.0-34.0); MEAN CORPUSCULAR HGB CONC 34.2 G/dL (31.0-37.0); MEAN CORPUSCULAR VOLUME 97 fL (80-100); MONOCYTES # (AUTO) 0.6 K/uL (0.1-1.0); MONOCYTES % (AUTO) 10.6 % (2.0-9.0); NEUTROPHILS # (AUTO) 3.2 K/uL (1.8-7.7); PLATELET COUNT (AUTO) 337 K/uL (150-450); RED BLOOD CELL COUNT(AUTO) 4.26 MIL/uL (4.50-5.90); RED CELL DISTRIBUTION WIDTH 13.9 % (11.5-14.5)
[2022-07-09 08:27] LABS: ANION GAP 9 mmol/L (8-16); CALCIUM, TOTAL 8.5 mg/dL (8.8-10.5); CARBON DIOXIDE 24 mmol/L (22-29); CHLORIDE 105 mmol/L (98-107); CREATININE 0.65 mg/dL (0.60-1.30); GLOMERULAR FILTR. RATE CALC > 60 mL/min (>60); GLUCOSE,RANDOM 100 mg/dL (70-110); POTASSIUM 3.8 mmol/L (3.5-5.1); SODIUM SERUM 138 mmol/L (136-145); UREA NITROGEN, BLOOD 8 mg/dL (7-18)
[2022-07-09] MEDS: VANCOMYCIN 1GM/WATER(PEG/NADA) 200 ML IV SCH (08:40)
[2022-07-09] MEDS: DOCUSATE SODIUM 100 MG CAPSULE PO SCH (08:40)
[2022-07-09] MEDS: SERTRALINE HCL 50 MG TABLET PO SCH (08:40)
[2022-07-09] MEDS: PANTOPRAZOLE SODIUM 40 MG DR TABLET PO SCH (08:40)
[2022-07-09] MEDS: ARIPiprazole 10 MG TABLET PO SCH (08:40)
[2022-07-09] MEDS: HEPARIN SODIUM,PORCINE 5,000 UNITS/ML VIAL SQ SCH (08:40)
[2022-07-09 09:03] VITALS: BP 130/82
[2022-07-09] MEDS ORDERED: HALOPERIDOL LACTATE 5 MG/ML VIAL IM ONE (14:45)
== END 2022-07-09 15:15 | disposition left against medical advice (07) | DRG 383 ==
LOC: EMS 17:42 → AHU 20:51 → 6S 07-08 16:26
PROVIDERS: ADMIT Internal Medicine; ATTEND Internal Medicine
DX: L03.115 Cellulitis of right lower limb (principal); K70.30 Alcoholic cirrhosis of liver without ascites; F10.90 Alcohol use, unspecified, uncomplicated; F19.10 Other psychoactive substance abuse, uncomplicated; F20.9 Schizophrenia, unspecified; Z53.29 Procedure and treatment not carried out because of patient's decision for other reasons; F32.A Depression, unspecified; R79.89 Other specified abnormal findings of blood chemistry; Z20.822 Contact with and (suspected) exposure to COVID-19; Z91.199 Patient's noncompliance with other medical treatment and regimen due to unspecified reason; Z59.00 Homelessness unspecified; Z79.899 Other long term (current) drug therapy
CPT/HCPCS: 73701; 80048; 80053; 80202; 80307; 83605; 83880; 85025; 87040; 97116; 97162; 97530; 99285; G0378; G0480; J1200; J1630; J1644; J2060; J2270; J3370; J7030; J7050; J7060; Q9967

== ENCOUNTER 2022-07-13 07:48 | Inpatient (IN) | payer MEDICAID, OTHER ==
[~2022-07-13] VITALS: Ht 175.3 cm; Wt 83.8 kg
[2022-07-13] MEDS ORDERED: DiphenhydrAMINE HCL 50 MG/ML VIAL IM ONE (08:45)
[2022-07-13 09:10] LABS: BASOPHILS % (AUTO) 1.4 % (0.0-2.0); EOSINOPHILS % (AUTO) 5.2 % (1.0-6.0); HEMATOCRIT 43.8 % (41-53); HEMOGLOBIN 15.3 g/dL (13.5-17.5); LYMPHOCYTES # (AUTO) 1.5 K/uL (1.0-4.8); LYMPHOCYTES % (AUTO) 22.1 % (22.0-44.0); MEAN CORPUSCULAR HEMOGLOBIN 33.8 pg (26.0-34.0); MEAN CORPUSCULAR VOLUME 97 fL (80-100); MONOCYTES # (AUTO) 0.8 K/uL (0.1-1.0); MONOCYTES % (AUTO) 11.3 % (2.0-9.0); NEUTROPHILS # (AUTO) 4.1 K/uL (1.8-7.7); PLATELET COUNT (AUTO) 354 K/uL (150-450); RED BLOOD CELL COUNT(AUTO) 4.53 MIL/uL (4.50-5.90); RED CELL DISTRIBUTION WIDTH 13.8 % (11.5-14.5)
[2022-07-13 09:26] LABS: COVID AG,FIA SOURCE NASAL SWAB
[2022-07-13 09:27] LABS: ANION GAP 10 mmol/L (8-16); CALCIUM, TOTAL 9.2 mg/dL (8.8-10.5); CARBON DIOXIDE 26 mmol/L (22-29); CHLORIDE 102 mmol/L (98-107); CREATININE 0.76 mg/dL (0.60-1.30); GLOMERULAR FILTR. RATE CALC > 60 mL/min (>60); GLUCOSE,RANDOM 96 mg/dL (70-110); POTASSIUM 4.3 mmol/L (3.5-5.1); SODIUM SERUM 138 mmol/L (136-145); UREA NITROGEN, BLOOD 9 mg/dL (7-18)
[2022-07-13 09:32] LABS: ALANINE AMINOTRANSFERASE 74 U/L (12-78); ALBUMIN 3.7 g/dL (3.4-5.0); ALKALINE PHOSPHATASE 80 U/L (46-116); ASPARTATE AMINOTRANSFERASE 69 U/L (15-37); BILIRUBIN,TOTAL 0.5 mg/dL (0.1-1.0); TOTAL PROTEIN, SERUM 7.5 g/dL (6.4-8.2)
[2022-07-13 10:01] LABS: AMPHET/METH SCREEN,URINE POSITIVE (NEGATIVE); BARBITURATE SCREEN, URINE NEGATIVE (NEGATIVE); BENZODIAZEPINES SCREEN,URINE NEGATIVE (NEGATIVE); CANNABINOID SCREEN,URINE NEGATIVE (NEGATIVE); COCAINE SCREEN,URINE NEGATIVE (NEGATIVE); METHADONE SCREEN, URINE NEGATIVE (NEGATIVE); OPIATE SCREEN,URINE NEGATIVE (NEGATIVE); PHENCYCLIDINE SCREEN,URINE NEGATIVE (NEGATIVE)
[2022-07-13] MEDS ORDERED: ZOLPIDEM TARTRATE 10 MG TABLET PO PRN (11:00)
[2022-07-14] MEDS ORDERED: DiphenhydrAMINE HCL 50 MG/ML VIAL ONE (10:50)
[2022-07-14] MEDS ORDERED: LORazepam 2 MG/ML VIAL ONE (10:50)
[2022-07-14] MEDS ORDERED: HALOPERIDOL LACTATE 5 MG/ML VIAL ONE (10:50)
[2022-07-14] MEDS ORDERED: DiphenhydrAMINE HCL 50 MG/ML VIAL IM ONE (12:15)
[2022-07-14] MEDS ORDERED: LORazepam 2 MG/ML VIAL IM ONE (12:15)
[2022-07-14] MEDS ORDERED: HALOPERIDOL LACTATE 5 MG/ML VIAL IM ONE (12:15)
[2022-07-14 17:40] VITALS: BP 142/102
[2022-07-14] MEDS ORDERED: LOPERAMIDE HCL 2 MG CAPSULE PO PRN (19:00)
[2022-07-14] MEDS ORDERED: ACETAMINOPHEN 325 MG TABLET PO PRN (19:00)
[2022-07-14] MEDS ORDERED: MAG HYDROX/AL HYDROX/SIMETH ES 30 ML SUSPENSION UDCUP PO PRN (19:00)
[2022-07-14] MEDS ORDERED: DOCUSATE SODIUM 100 MG CAPSULE PO PRN (19:00)
[2022-07-14] MEDS ORDERED: MAGNESIUM HYDROXIDE SUSPENSION 30 ML UDCUP PO PRN (19:00)
[2022-07-14] MEDS ORDERED: IBUPROFEN 600 MG TABLET PO PRN (19:00)
[2022-07-14] MEDS ORDERED: PETROLATUM,WHITE 28 GM JELLY TP PRN (19:00)
[2022-07-14] MEDS ORDERED: OMEPRAZOLE 20 MG CAPSULE PO PRN (19:00)
[2022-07-14] MEDS ORDERED: BACITRACIN 28 GM OINTMENT TP PRN (19:00)
[2022-07-14] MEDS ORDERED: BENZOCAINE/MENTHOL LOZENGE PO PRN (19:00)
[2022-07-14] MEDS ORDERED: ALBUTEROL SULFATE HFA 90 MCG/PUFF 8 GM INHALER IH PRN (19:00)
[2022-07-14] MEDS ORDERED: ONDANSETRON HCL 4 MG TABLET PO PRN (19:00)
[2022-07-14] MEDS ORDERED: NICOTINE 14 MG/24 HOUR PATCH TD PRN (19:00)
[2022-07-14] MEDS ORDERED: CloNIDine HCL 0.1 MG TABLET PO PRN (19:00)
[2022-07-15] MEDS: BACITRACIN 28 GM OINTMENT TP SCH ×2 (08:17→16:02)
[2022-07-15] MEDS: ARIPiprazole 10 MG TABLET PO SCH (08:28)
[2022-07-15] MEDS: HALOPERIDOL 5 MG TABLET PO PRN (15:24)
[2022-07-15] MEDS: LORazepam 2 MG TABLET PO PRN (15:24)
[2022-07-15 16:14] VITALS: BP 155/83
[2022-07-16 08:17] VITALS: BP 131/87
[2022-07-16] MEDS: ARIPiprazole 10 MG TABLET PO SCH (08:19)
[2022-07-16] MEDS: BACITRACIN 28 GM OINTMENT TP SCH ×2 (08:20→16:45)
[2022-07-16] MEDS ORDERED: DiphenhydrAMINE HCL 50 MG/ML VIAL IM ONE (10:45)
[2022-07-16] MEDS ORDERED: LORazepam 2 MG/ML VIAL IM ONE (10:45)
[2022-07-16] MEDS ORDERED: HALOPERIDOL LACTATE 5 MG/ML VIAL IM ONE (10:45)
[2022-07-16 21:31] VITALS: BP 129/90
[2022-07-17] MEDS: BACITRACIN 28 GM OINTMENT TP SCH ×3 (09:00→17:00)
[2022-07-17] MEDS: ARIPiprazole 10 MG TABLET PO SCH ×2 (09:00→09:06)
[2022-07-17] MEDS: HALOPERIDOL 5 MG TABLET PO PRN (09:06)
[2022-07-17] MEDS: LORazepam 2 MG TABLET PO PRN ×3 (09:06→14:37)
[2022-07-18] MEDS: BACITRACIN 28 GM OINTMENT TP SCH ×2 (08:07→17:00)
[2022-07-18] MEDS: ARIPiprazole 10 MG TABLET PO SCH (08:07)
[2022-07-18] MEDS: LORazepam 2 MG TABLET PO PRN (08:07)
[2022-07-18 08:54] VITALS: BP 99/67
[2022-07-18 16:40] VITALS: BP 124/77
[2022-07-19] MEDS: ARIPiprazole 10 MG TABLET PO SCH (08:07)
[2022-07-19] MEDS: BACITRACIN 28 GM OINTMENT TP SCH ×2 (08:08→16:56)
[2022-07-19] MEDS: LORazepam 2 MG TABLET PO PRN (10:35)
[2022-07-19] MEDS: HALOPERIDOL 5 MG TABLET PO PRN (10:35)
[2022-07-19] MEDS ORDERED: ARIP10TA38 PO (13:28)
== END 2022-07-19 14:45 | disposition home or self-care (01) | DRG 750 ==
LOC: EMS 07:51 → 3EC 07-14 15:17
PROVIDERS: ADMIT Psychiatry & Neurology Psychiatry; ATTEND Psychiatry & Neurology Psychiatry
DX: F20.9 Schizophrenia, unspecified (principal); K74.60 Unspecified cirrhosis of liver; B18.2 Chronic viral hepatitis C; E55.9 Vitamin D deficiency, unspecified; F12.90 Cannabis use, unspecified, uncomplicated; F15.90 Other stimulant use, unspecified, uncomplicated; M19.90 Unspecified osteoarthritis, unspecified site; Z20.822 Contact with and (suspected) exposure to COVID-19; F10.10 Alcohol abuse, uncomplicated; F17.200 Nicotine dependence, unspecified, uncomplicated; J44.9 Chronic obstructive pulmonary disease, unspecified; F32.A Depression, unspecified; K21.9 Gastro-esophageal reflux disease without esophagitis; M25.559 Pain in unspecified hip; Z59.00 Homelessness unspecified; Z56.0 Unemployment, unspecified; Z71.6 Tobacco abuse counseling; Z78.1 Physical restraint status
CPT/HCPCS: 80053; 80307; 85025; 87081; 99285; G0480; J1200; J1630; J2060

== ENCOUNTER 2022-08-02 19:54 | Inpatient (IN) | payer MEDICAID, OTHER ==
[~2022-08-02] VITALS: Ht 175.3 cm; Wt 80.7 kg
[~2022-08-02 19:54] MED LIST changes: -SERT-439 PO
[2022-08-02] MEDS ORDERED: DiphenhydrAMINE HCL 50 MG/ML VIAL IM ONE (22:00)
[2022-08-02] MEDS ORDERED: LORazepam 2 MG/ML VIAL IM ONE (22:00)
[2022-08-02] MEDS ORDERED: HALOPERIDOL LACTATE 5 MG/ML VIAL IM ONE (22:00)
[2022-08-02] MEDS ORDERED: PERMETHRIN 5% 60 GM CREAM TP ONE (22:30)
[2022-08-02 22:35] LABS: COVID AG,FIA SOURCE NASOPHARYNGEAL
[2022-08-03 00:28] LABS: EOSINOPHILS % (AUTO) 7.8 % (1.0-6.0); HEMATOCRIT 41.7 % (41-53); HEMOGLOBIN 14.5 g/dL (13.5-17.5); LYMPHOCYTES # (AUTO) 1.8 K/uL (1.0-4.8); LYMPHOCYTES % (AUTO) 25.9 % (22.0-44.0); MEAN CORPUSCULAR HEMOGLOBIN 34.1 pg (26.0-34.0); MEAN CORPUSCULAR HGB CONC 34.8 G/dL (31.0-37.0); MEAN CORPUSCULAR VOLUME 98 fL (80-100); MONOCYTES # (AUTO) 0.7 K/uL (0.1-1.0); MONOCYTES % (AUTO) 10.4 % (2.0-9.0); NEUTROPHILS # (AUTO) 3.7 K/uL (1.8-7.7); NEUTROPHILS % (AUTO) 54.9 % (40.0-70.0); PLATELET COUNT (AUTO) 340 K/uL (150-450); RED BLOOD CELL COUNT(AUTO) 4.25 MIL/uL (4.50-5.90); RED CELL DISTRIBUTION WIDTH 13.5 % (11.5-14.5)
[2022-08-03 00:47] LABS: ANION GAP 8 mmol/L (8-16); CALCIUM, TOTAL 8.8 mg/dL (8.8-10.5); CARBON DIOXIDE 28 mmol/L (22-29); CHLORIDE 106 mmol/L (98-107); CREATININE 0.84 mg/dL (0.60-1.30); GLOMERULAR FILTR. RATE CALC > 60 mL/min (>60); GLUCOSE,RANDOM 99 mg/dL (70-110); POTASSIUM 3.4 mmol/L (3.5-5.1); SODIUM SERUM 142 mmol/L (136-145); UREA NITROGEN, BLOOD 9 mg/dL (7-18)
[2022-08-03 00:53] LABS: ALANINE AMINOTRANSFERASE 43 U/L (12-78); ALBUMIN 3.1 g/dL (3.4-5.0); ALKALINE PHOSPHATASE 69 U/L (46-116); ASPARTATE AMINOTRANSFERASE 47 U/L (15-37); BILIRUBIN,TOTAL 0.7 mg/dL (0.1-1.0); TOTAL PROTEIN, SERUM 6.5 g/dL (6.4-8.2)
[2022-08-03] MEDS: ZOLPIDEM TARTRATE 10 MG TABLET PO PRN (04:35)
[2022-08-03] MEDS: LORazepam 2 MG TABLET PO PRN (13:35)
[2022-08-03] MEDS: HALOPERIDOL 5 MG TABLET PO PRN (13:35)
[2022-08-03] MEDS: ARIPiprazole 10 MG TABLET PO SCH (13:35)
[2022-08-03] MEDS ORDERED: INFLUENZA VIRUS VACCINE QVS 2022-23 (6MO+)/PF 60 MCG/0.5 ML SYRINGE IM. ONE (14:30)
[2022-08-03] MEDS ORDERED: PNEUMOCOCCAL VACCINE POLYVALENT 0.5 ML VIAL [PPSV23] IM. ONE (14:30)
[2022-08-03 20:33] VITALS: BP 124/82
[2022-08-03] MEDS ORDERED: DOCUSATE SODIUM 100 MG CAPSULE PO PRN (23:15)
[2022-08-03] MEDS ORDERED: BACITRACIN 28 GM OINTMENT TP PRN (23:15)
[2022-08-03] MEDS ORDERED: BENZOCAINE/MENTHOL LOZENGE PO PRN (23:15)
[2022-08-03] MEDS ORDERED: MAG HYDROX/AL HYDROX/SIMETH ES 30 ML SUSPENSION UDCUP PO PRN (23:15)
[2022-08-03] MEDS ORDERED: PETROLATUM,WHITE 28 GM JELLY TP PRN (23:15)
[2022-08-03] MEDS ORDERED: ONDANSETRON HCL 4 MG TABLET PO PRN (23:15)
[2022-08-03] MEDS ORDERED: LOPERAMIDE HCL 2 MG CAPSULE PO PRN (23:15)
[2022-08-03] MEDS ORDERED: ALBUTEROL SULFATE HFA 90 MCG/PUFF 8 GM INHALER IH PRN (23:15)
[2022-08-03] MEDS ORDERED: CloNIDine HCL 0.1 MG TABLET PO PRN (23:15)
[2022-08-03] MEDS ORDERED: OMEPRAZOLE 20 MG CAPSULE PO PRN (23:15)
[2022-08-03] MEDS ORDERED: MAGNESIUM HYDROXIDE SUSPENSION 30 ML UDCUP PO PRN (23:15)
[2022-08-04] MEDS: ARIPiprazole 10 MG TABLET PO SCH (09:00)
[2022-08-04 10:25] VITALS: BP 126/79
[2022-08-04] MEDS: LORazepam 2 MG TABLET PO PRN (17:30)
[2022-08-04] MEDS: IBUPROFEN 600 MG TABLET PO PRN (17:30)
[2022-08-04 20:02] VITALS: BP 120/68
[2022-08-04] MEDS: ZOLPIDEM TARTRATE 10 MG TABLET PO PRN (22:01)
[2022-08-05 07:25] LABS: EOSINOPHILS % (AUTO) 5.5 % (1.0-6.0); HEMATOCRIT 41.6 % (41-53); HEMOGLOBIN 14.8 g/dL (13.5-17.5); LYMPHOCYTES # (AUTO) 1.5 K/uL (1.0-4.8); LYMPHOCYTES % (AUTO) 28.1 % (22.0-44.0); MEAN CORPUSCULAR HEMOGLOBIN 34.6 pg (26.0-34.0); MEAN CORPUSCULAR HGB CONC 35.6 G/dL (31.0-37.0); MEAN CORPUSCULAR VOLUME 97 fL (80-100); MONOCYTES # (AUTO) 0.6 K/uL (0.1-1.0); NEUTROPHILS # (AUTO) 2.8 K/uL (1.8-7.7); NEUTROPHILS % (AUTO) 54.4 % (40.0-70.0); PLATELET COUNT (AUTO) 352 K/uL (150-450); RED BLOOD CELL COUNT(AUTO) 4.28 MIL/uL (4.50-5.90); RED CELL DISTRIBUTION WIDTH 13.3 % (11.5-14.5)
[2022-08-05 07:46] LABS: ALANINE AMINOTRANSFERASE 28 U/L (12-78); ALBUMIN 3.1 g/dL (3.4-5.0); ALKALINE PHOSPHATASE 70 U/L (46-116); ANION GAP 9 mmol/L (8-16); ASPARTATE AMINOTRANSFERASE 38 U/L (15-37); BILIRUBIN,TOTAL 0.5 mg/dL (0.1-1.0); CALCIUM, TOTAL 8.8 mg/dL (8.8-10.5); CARBON DIOXIDE 26 mmol/L (22-29); CHLORIDE 106 mmol/L (98-107); CREATININE 0.68 mg/dL (0.60-1.30); GLOMERULAR FILTR. RATE CALC > 60 mL/min (>60); GLUCOSE,RANDOM 91 mg/dL (70-110); PHOSPHORUS 3.9 mg/dL (2.5-4.9); POTASSIUM 3.8 mmol/L (3.5-5.1); SODIUM SERUM 141 mmol/L (136-145); TOTAL PROTEIN, SERUM 6.7 g/dL (6.4-8.2); UREA NITROGEN, BLOOD 10 mg/dL (7-18)
[2022-08-05] MEDS: ARIPiprazole 10 MG TABLET PO SCH (09:00)
[2022-08-05] MEDS ORDERED: HYDROCORTISONE 1% 30 GM CREAM TP PRN (12:30)
[2022-08-05] MEDS ORDERED: HALOPERIDOL LACTATE 5 MG/ML VIAL ONE (15:17)
[2022-08-05] MEDS ORDERED: DiphenhydrAMINE HCL 50 MG/ML VIAL ONE (15:17)
[2022-08-05] MEDS ORDERED: LORazepam 2 MG/ML VIAL ONE (15:17)
[2022-08-05] MEDS ORDERED: LORazepam 2 MG/ML VIAL IM ONE (15:45)
[2022-08-05] MEDS ORDERED: HALOPERIDOL LACTATE 5 MG/ML VIAL IM ONE (15:45)
[2022-08-05] MEDS ORDERED: DiphenhydrAMINE HCL 50 MG/ML VIAL IM ONE (15:45)
[2022-08-05 20:12] VITALS: BP 111/69
[2022-08-06 08:18] VITALS: BP 112/71
[2022-08-06] MEDS: ARIPiprazole 10 MG TABLET PO SCH (08:53)
[2022-08-06] MEDS: DiphenhydrAMINE HCL 25 MG CAPSULE PO PRN (19:33)
[2022-08-06] MEDS: HALOPERIDOL 5 MG TABLET PO PRN (19:33)
[2022-08-06] MEDS: LORazepam 2 MG TABLET PO PRN (19:33)
[2022-08-06] MEDS: ACETAMINOPHEN 325 MG TABLET PO PRN (19:34)
[2022-08-06 20:02] VITALS: BP 123/83
[2022-08-07 08:14] VITALS: BP 124/81
[2022-08-07] MEDS: ARIPiprazole 10 MG TABLET PO SCH (08:29)
[2022-08-07] MEDS: IBUPROFEN 600 MG TABLET PO PRN ×2 (11:54→21:44)
[2022-08-07 20:03] VITALS: BP 118/78
[2022-08-07] MEDS: ZOLPIDEM TARTRATE 10 MG TABLET PO PRN (21:43)
[2022-08-07] MEDS: DiphenhydrAMINE HCL 25 MG CAPSULE PO PRN (21:43)
[2022-08-08 08:13] VITALS: BP 114/77
[2022-08-08] MEDS: ARIPiprazole 10 MG TABLET PO SCH (08:30)
[2022-08-08] MEDS ORDERED: DiphenhydrAMINE HCL 50 MG/ML VIAL ONE (08:52)
[2022-08-08] MEDS ORDERED: HALOPERIDOL LACTATE 5 MG/ML VIAL ONE (08:52)
[2022-08-08] MEDS ORDERED: DiphenhydrAMINE HCL 50 MG/ML VIAL IM ONE (09:00)
[2022-08-08] MEDS ORDERED: LORazepam 2 MG/ML VIAL IM ONE (09:00)
[2022-08-08] MEDS ORDERED: HALOPERIDOL LACTATE 5 MG/ML VIAL IM ONE (09:00)
[2022-08-08 11:56] LABS: GLUCOMETER DEV NAME(LOC) POC.BV
[2022-08-08 20:04] VITALS: BP 118/68
[2022-08-09] MEDS: ARIPiprazole 10 MG TABLET PO SCH (08:16)
[2022-08-09] MEDS: HALOPERIDOL 5 MG TABLET PO PRN (08:16)
[2022-08-09] MEDS: LORazepam 2 MG TABLET PO PRN (08:16)
[2022-08-09 08:45] VITALS: BP 116/78
[2022-08-09 20:12] VITALS: BP 121/76
[2022-08-10 01:43] VITALS: BP 107/73
[2022-08-10] MEDS: ACETAMINOPHEN 325 MG TABLET PO PRN (01:47)
[2022-08-10 08:08] VITALS: BP 104/61
[2022-08-10] MEDS: ARIPiprazole 10 MG TABLET PO SCH (08:25)
[2022-08-10] MEDS: HALOPERIDOL 5 MG TABLET PO PRN ×2 (08:25→17:41)
[2022-08-10] MEDS: LORazepam 2 MG TABLET PO PRN ×2 (08:25→17:41)
[2022-08-10] MEDS: DiphenhydrAMINE HCL 25 MG CAPSULE PO PRN ×2 (08:25→17:41)
[2022-08-10 08:31] VITALS: BP 104/61
[2022-08-10] MEDS ORDERED: ARIP10TA38 PO (17:34)
[2022-08-10 20:12] VITALS: BP 111/75
[2022-08-10] MEDS: ZOLPIDEM TARTRATE 10 MG TABLET PO PRN (20:47)
[2022-08-10] MEDS: IBUPROFEN 600 MG TABLET PO PRN (23:39)
[2022-08-11] MEDS: ARIPiprazole 10 MG TABLET PO SCH (08:01)
[2022-08-11 08:24] VITALS: BP 121/79
== END 2022-08-11 14:56 | disposition home or self-care (01) | DRG 750 ==
LOC: EMS 19:55 → B3A 08-03 10:10
PROVIDERS: ADMIT Psychiatry & Neurology Psychiatry; ATTEND Psychiatry & Neurology Psychiatry
DX: F25.9 Schizoaffective disorder, unspecified (principal); B18.2 Chronic viral hepatitis C; Z20.822 Contact with and (suspected) exposure to COVID-19; E55.9 Vitamin D deficiency, unspecified; F10.10 Alcohol abuse, uncomplicated; F32.9 Major depressive disorder, single episode, unspecified; G47.00 Insomnia, unspecified; J44.9 Chronic obstructive pulmonary disease, unspecified; M19.90 Unspecified osteoarthritis, unspecified site; R45.88 Nonsuicidal self-harm; F12.90 Cannabis use, unspecified, uncomplicated; Z72.0 Tobacco use; Z71.6 Tobacco abuse counseling
CPT/HCPCS: 80053; 83735; 84100; 85025; 99285; G0480; J1200; J1630; J2060